=== PATIENT | male | born 2000 | race Caucasian/White ===

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

== ENCOUNTER 2021-03-16 16:43 | Emergency (ER) | payer MEDICARE ==
[~2021-03-16 16:43] MED LIST: FLEXERIL 10 MG10 MG PO; IBUPROFEN600 MG PO
== END 2021-03-16 18:30 | disposition left against medical advice (07) ==
LOC: ER1 16:43
DX: Z53.21 Procedure and treatment not carried out due to patient leaving prior to being seen by health care provider (principal)

== ENCOUNTER → 2021-06-04 | Outpatient (CLI) | payer BC | LOC: RAD 16:02 | DX: M54.40 Lumbago with sciatica, unspecified side (principal) | CPT/HCPCS: 72100; 72202 ==

== ENCOUNTER 2022-06-01 21:49 | Emergency (ER) | payer BC, OTHER ==
[2022-06-01 22:53] LABS: HEMOGLOBIN 13.9 gm/dl (14.0-17.5); RED BLOOD COUNT 4.55 M/UL (4.20-5.50)
[2022-06-01 23:18] LABS: BUN/CREATININE RATIO 12 (0-10)
[2022-06-02] MEDS ORDERED: ASPIRIN CHEWABL81 MG PO (00:34)
== END 2022-06-02 00:51 | disposition home or self-care (01) ==
LOC: ER1 21:49
PROVIDERS: Physician Assistant
DX: U07.1 COVID-19 (principal); F12.10 Cannabis abuse, uncomplicated; F17.290 Nicotine dependence, other tobacco product, uncomplicated
CPT/HCPCS: 71045; 80053; 82550; 82553; 84484; 85025; 93005; 99285; U0002